=== PATIENT | female | born 1970 | race African-American/Black ===

== ENCOUNTER 2018-04-12 16:56 | Inpatient (IN) | payer MEDICARE, MEDICAID ==
[~2018-04-12] VITALS: Ht 162.6 cm; Wt 129.7 kg
[2018-04-12] MEDS ORDERED: HYDROCODONE/ACETAMINOPHEN 5/325MG TABLET PO STA (18:26)
[2018-04-12 19:40] LABS: BASOPHILS % 0.5 % (0.0-2.0); EOSINOPHILS % 0.1 % (0.0-5.0); HEMATOCRIT. 40.7 % (36.0-48.0); HEMOGLOBIN. 13.1 g/dL (12.0-16.0); LYMPHOCYTES % 14.9 % (20.0-50.0); MEAN CORPUSCULAR VOLUME 83.8 fL (81.0-99.0); MEAN PLATELET VOLUME 9.5 fl (7.4-10.4); MONOCYTES % 10.9 % (2.0-8.0); NEUTROPHILS % 73.6 % (40.0-76.0); PLATELET 207 x1000/uL (130-400); RED BLOOD CELL COUNT 4.86 mill/uL (4.2-5.4); RED CELL DISTRIBUTION WIDTH 15.5 % (11.6-14.6)
[2018-04-12 19:43] LABS: CLARITY URINE CLEAR (CLEAR); COLOR URINE DARK YELLOW (YELLOW); KETONES URINE TRACE (NEGATIVE); LEUKOCYTE ESTERASE URINE NEGATIVE (NEGATIVE); NITRITE URINE NEGATIVE (NEGATIVE); OCCULT BLOOD URINE NEGATIVE (NEGATIVE); PROTEIN URINE 2+ (NEGATIVE); SPECIFIC GRAVITY URINE 1.023 (1.005-1.030)
[2018-04-12 19:44] LABS: CHLORIDE 98 mEq/L (98-107)
[2018-04-12 19:46] LABS: INR 1.1; PROTHROMBIN TIME 10.9 sec (9.1-11.1)
[2018-04-12] MEDS ORDERED: ALBUTEROL (0.083%) 2.5MG/3ML NEB HHN ONE (20:00)
[2018-04-12] MEDS ORDERED: FUROSEMIDE 40MG/4ML VIAL IVP ONE (20:00)
[2018-04-12] MEDS ORDERED: ASPIRIN 81MG TABLET PO ONE (20:30)
[2018-04-13] MEDS ORDERED: MAGNESIUM/ALUMINUM HYDROXIDE/SIMETHICONE 30ML UDC PO PRN (00:30)
[2018-04-13] MEDS ORDERED: GUAIFENESIN 200MG/10ML SUGAR FREE UDC PO PRN (00:30)
[2018-04-13] MEDS ORDERED: HYDROCODONE/ACETAMINOPHEN 5/325MG TABLET PO PRN (00:30)
[2018-04-13] MEDS ORDERED: ACETAMINOPHEN 325MG TABLET PO PRN (00:30)
[2018-04-13] MEDS ORDERED: HYDROMORPHONE HCL/PF 2MG/ML CPJ IV PRN (00:30)
[2018-04-13] MEDS ORDERED: ONDANSETRON HCL 4MG/2ML INJ IV PRN (00:30)
[2018-04-13] MEDS ORDERED: NA PHOS,M-B/NA PHOS,DI-BA ENEMA 118ML PR PRN (00:30)
[2018-04-13] MEDS ORDERED: DOCUSATE SODIUM 100MG CAPSULE PO PRN (00:30)
[2018-04-13] MEDS ORDERED: DEXTROSE 50% WATER 50ML SYRINGE IV PRN (03:45)
[2018-04-13 04:15] VITALS: BP_SYST 154; BP_DIAS 80; BP_DIAS 81
[2018-04-13] MEDS ORDERED: ASPI-1159 PO (06:19)
[2018-04-13] MEDS ORDERED: CARV3.1242 PO (06:19)
[2018-04-13] MEDS ORDERED: LOSA100T14 PO (06:19)
[2018-04-13] MEDS ORDERED: FURO80TA3 PO (06:19)
[2018-04-13] MEDS ORDERED: METF-815 PO (06:19)
[2018-04-13] MEDS ORDERED: POTA99TA4 PO (06:19)
[2018-04-13] MEDS: BLOOD SUGAR DIAGNOSTIC STRIP TEST SCH ×4 (06:23→21:00)
[2018-04-13 08:00] VITALS: BP 149/87
[2018-04-13] MEDS: INSULIN LISPRO 100 UNITS/ML SUBCUT SCH ×4 (08:10→22:29)
[2018-04-13] MEDS: AMLODIPINE 10MG TABLET PO SCH (09:00)
[2018-04-13] MEDS: ENOXAPARIN 40MG/0.4ML SYR SUBCUT SCH ×2 (09:01→22:19)
[2018-04-13] MEDS: ASPIRIN 81MG EC TABLET PO SCH (09:01)
[2018-04-13] MEDS ORDERED: IPRATROPIUM/ALBUTEROL 0.5-3(2.5)MG/3ML NEB HHN PRN (10:00)
[2018-04-13 10:38] LABS: CREATINE KINASE 230 IU/L (26-192)
[2018-04-13 10:39] LABS: CREATINE KINASE MB FRACTION 1.2 ng/mL (0.5-3.6)
[2018-04-13 11:59] VITALS: BP 166/91
[2018-04-13] MEDS: CEFTRIAXONE 1,000 MG in DEXTROSE 5% WATER 50 ML IV SCH (12:12)
[2018-04-13] MEDS: GUAIFENESIN 600MG ER TABLET PO SCH ×2 (12:12→22:18)
[2018-04-13] MEDS: AZITHROMYCIN 500 MG in DEXT 5% WATER 250 ML IV SCH (12:49)
[2018-04-13 13:54] VITALS: BP 155/89
[2018-04-13 15:57] LABS: CREATINE KINASE MB FRACTION 1.3 ng/mL (0.5-3.6)
[2018-04-13 16:10] VITALS: BP 158/78
[2018-04-14] MEDS: BLOOD SUGAR DIAGNOSTIC STRIP TEST SCH ×2 (05:55→13:15)
[2018-04-14 07:16] LABS: HEMATOCRIT. 40.5 % (36.0-48.0); HEMOGLOBIN. 13.1 g/dL (12.0-16.0); MEAN CORPUSCULAR HEMOGLOBIN 27.2 pg (28.0-32.0); MEAN CORPUSCULAR VOLUME 84.2 fL (81.0-99.0); MEAN PLATELET VOLUME 9.7 fl (7.4-10.4); PLATELET 188 x1000/uL (130-400); RED BLOOD CELL COUNT 4.81 mill/uL (4.2-5.4); RED CELL DISTRIBUTION WIDTH 15.5 % (11.6-14.6)
[2018-04-14 07:26] LABS: CHLORIDE 96 mEq/L (98-107)
[2018-04-14 07:43] LABS: HDL CHOLESTEROL 35 mg/dL (40-59); LDL CHOLESTEROL 96 mg/dL (5-100)
[2018-04-14] MEDS: INSULIN LISPRO 100 UNITS/ML SUBCUT SCH ×2 (08:02→13:16)
[2018-04-14] MEDS: AMLODIPINE 10MG TABLET PO SCH (09:22)
[2018-04-14] MEDS: ASPIRIN 81MG EC TABLET PO SCH (09:22)
[2018-04-14] MEDS: ENOXAPARIN 40MG/0.4ML SYR SUBCUT SCH (09:22)
[2018-04-14] MEDS: GUAIFENESIN 600MG ER TABLET PO SCH (09:22)
[2018-04-14 10:16] LABS: PLATELET ESTIMATE NORMAL
[2018-04-14] MEDS: AZITHROMYCIN 500 MG in DEXT 5% WATER 250 ML IV SCH (11:00)
[2018-04-14 12:00] VITALS: BP 126/59
[2018-04-14] MEDS: CEFTRIAXONE 1,000 MG in DEXTROSE 5% WATER 50 ML IV SCH (12:00)
[2018-04-14 13:22] LABS: BG BASE EXCESS 0.7 mmol/L (-2.0-2.0); BG CARBOXYHEMOGLOBIN 1.3 % (0.5-1.5); BG DEOXYHEMOGLOBIN 4.5 % (0.0-5.0); BG FRACTION INSPIRED OXYGEN 21; BG HCO3 ACT 25.4 mmol/L (22.0-26.0); BG METHEMOGLOBIN 0.3 % (0.0-1.5); BG OXYGEN SATURATION 95.4 % (92.0-98.5); BG OXYHEMOGLOBIN 93.9 % (94.0-97.0); BG PO2 78.3 mmHg (75.0-100.0); BG SAMPLE SITE RIGHT RADIAL; BG TOTAL HEMOGLOBIN 14.2 g/dL (12.0-18.0); BG VENT MODE ROOM AIR
[2018-04-14] MEDS ORDERED: POTASSIUM CHLORIDE 20MEQ TABLET SR PO SCH (13:30)
[2018-04-14 14:38] VITALS: BP 97/128
== END 2018-04-14 15:40 | disposition home or self-care (01) | DRG 202 ==
LOC: ER 16:56 → 7WST 20:40 → EDBEDREQSVC 20:48 → EDBEDREQTM 20:48 → EDBEDREQ 20:48 → SUPCPDRO 04-13 00:16 → ENRESERV 04-13 02:19 → 7WST 04-14 13:58
PROVIDERS: ADMIT Hospitalist; ATTEND Hospitalist
DX: J20.9 Acute bronchitis, unspecified (principal); J44.0 Chronic obstructive pulmonary disease with (acute) lower respiratory infection; R65.10 Systemic inflammatory response syndrome (SIRS) of non-infectious origin without acute organ dysfunction; E11.9 Type 2 diabetes mellitus without complications; I50.9 Heart failure, unspecified; I11.0 Hypertensive heart disease with heart failure; Z82.49 Family history of ischemic heart disease and other diseases of the circulatory system; Z79.82 Long term (current) use of aspirin; Z79.84 Long term (current) use of oral hypoglycemic drugs; Z79.899 Other long term (current) drug therapy
CPT/HCPCS: 36415; 36600; 71045; 80061; 82375; 82550; 82553; 82805; 82962; 83880; 84484; 87804; 93005; 93306; 93970; 96374; 99291; J0456; J0696; J1650; J1815; J1940; J7050; J7060